=== PATIENT | male | born 1955 | race Caucasian/White ===

== ENCOUNTER → 2022-11-02 | Outpatient (CLI) | payer MEDICARE, MEDICAID ==
[~2022-11-02] MED LIST: CATHETER FLUSH 10 ML SYR IVP PRN
--- NOTE | 2022-11-03 11:27 | Diagnostic Imaging Report ---
INDICATION: B-cell lymphoma, initial staging. TECHNIQUE: Serum blood glucose level at the time of injection is 98 mg/dL. Patient was administered 10.1 mCi F-18 FDG in the right antecubital location and PET imaging was performed from the top of the skull to mid thighs. Noncontrast CT was also performed for attenuation correction and anatomic correlation. COMPARISON: No prior studies are available for comparison. FINDINGS: There is symmetric activity throughout the brain. Soft tissues of the neck are unremarkable. There is no hypermetabolic mediastinal or hilar lymphadenopathy. No hypermetabolic pulmonary mass is detected. Physiologic activity throughout the GI and tracts of the abdomen and pelvis is noted. No hypermetabolic abdominal or pelvic mass or lymphadenopathy is seen. IMPRESSION: Unremarkable PET/CT study. No suspicious areas of hypermetabolism are detected. Dictated by: Dictated on workstation # [id number]
== END ==
LOC: RAD 08:47
PROVIDERS: ATTEND Internal Medicine Hematology & Oncology
DX: C88.4 Extranodal marginal zone B-cell lymphoma of mucosa-associated lymphoid tissue [MALT-lymphoma] (principal)
CPT/HCPCS: 82947